=== PATIENT | male | born 1930 | race Caucasian/White ===

== ENCOUNTER 2016-10-29 15:55 | Emergency (ER) | payer MEDICARE, BC ==
--- NOTE | 2016-10-29 16:31 | EDM.PDOC ---
[id number] Complaint: MEDICAL VIA AMBULANCE Time Seen by Provider: 10/29/16 16:29 Source of Information: Reports: Patient, Family History Limitations: Reports: No Limitations - History of Present Illness INITIAL COMMENTS - FREE TEXT/NARRATIVE: [place]. He is now complaing of pain the rt hip area. 1 week ago he had a femerol stent placed. Onset: Today Duration: Hour(s): Location: Reports: Lower Extremity, Right Quality: Reports: Sharp Severity: Moderate Associated Symptoms: Reports: Other (pt has pain in the rt hip area. ) Right Hip Pain Score (Numeric/FACES): 5 - Related Data Allergies Allergy/AdvReac Type Severity Reaction Status Date / Time No Known Allergies Allergy Verified 05/20/13 13:06 Home Meds: Home Meds Atenolol 25 mg PO BEDTIME 05/20/13 [History] Prazosin [Minpress] 10 mg PO BEDTIME 05/20/13 [History] Ranitidine [Zantac] 150 mg PO BID 05/20/13 [History] Simvastatin [Zocor] 20 mg PO BEDTIME 05/20/13 [History] Valsartan [Diovan] 320 mg PO DAILY 05/20/13 [History] Aspirin 650 mg PO DAILY 08/14/14 [History] Past Medical History Cardiovascular History: Reports: Hypertension - Infectious Disease History Infectious Disease History: Reports: Chicken Pox, Measles, Mumps - Past Surgical History Cardiovascular Surgical History: Reports: Other (See Below) Other Cardiovascular Surgeries/Procedures: 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 , has a stent in right hip area Male Surgical History: Reports: Nephrectomy Musculoskeletal Surgical History: Reports: Shoulder Replacement Social & Family History - Tobacco Use Smoking Status *Q: Never Smoker Years of Tobacco use: 65 Packs/Tins Daily: 0.5 Used Tobacco, but Quit: No Month Tobacco Last Used: july Second Hand Smoke Exposure: Yes - Caffeine Use Caffeine Use: Reports: None - Alcohol Use Days Per Week of Alcohol Use: 7 Number of Drinks Per Day: 2 Total Drinks Per Week: 14 - Recreational Drug Use Recreational Drug Use: No Review of Systems - Review of Systems Review Of Systems: See Below Constitutional: Reports: No Symptoms Eyes: Reports: No Symptoms Ears: Reports: No Symptoms Nose: Reports: No Symptoms Mouth/Throat: Reports: No Symptoms Respiratory: Reports: No Symptoms Cardiovascular: Reports: No Symptoms GI/Abdominal: Reports: No Symptoms Genitourinary: Reports: No Symptoms Musculoskeletal: Reports: Other (pain in the rt hip area. ) ED EXAM, GENERAL - Physical Exam Exam: See Below Free Text/Narrative:: pt arrived with pain in the rt hip. [place] . He was not knoocked out. On arrival he had o2 sats in the low 80s. He was feeling sob. He was at [facility] 1 week ago. and had stents placed in his rt femoral artery. Exam Limited By: No Limitations General Appearance: Alert, Moderate Distress Ears: Normal TMs Nose: Normal Inspection Throat/Mouth: Normal Inspection Head: Atraumatic Neck: Normal Inspection Respiratory/Chest: Other ( o2 sats were low. He hd poor air exchange at the rt lung base. ) Cardiovascular: Regular Rate, Rhythm GI/Abdominal: Soft, Non-Tender (Male) Exam: Other ( huang cath was placed. ) Rectal (Males) Exam: Deferred Back Exam: Normal Inspection Extremities: Other (pt is having severe pain in the rt groin area. ) Neurological: Alert, Oriented, Normal Cognition Psychiatric: Anxious Course - Vital Signs Last Recorded V/S: Last Vital Signs Temp 36.9 C 10/29/16 16:06 Pulse 57 L 10/29/16 18:52 Resp 20 10/29/16 18:52 BP 137/75 10/29/16 18:52 Pulse Ox 91 L 10/29/16 18:52 - Orders/Labs/Meds Labs: Laboratory Tests 10/29/16 10/29/16 10/29/16 Range/Units 17:20 17:20 17:37 WBC 10.1 (4.5-11.0) K/uL RBC 5.30 (4.30-5.90) M/uL Hgb 17.0 H (12.0-15.0) g/dL Hct 50.6 (40.0-54.0) % MCV 96 (80-98) fL MCH 32 H (27-31) pg MCHC 34 (32-36) % Plt Count 92 L (150-400) K/uL Neut % (Auto) 83 H (36-66) % Lymph % (Auto) 10 L (24-44) % [place] % (Auto) 6 (2-6) % Eos % (Auto) 1 L (2-4) % Baso % (Auto) 1 (0-1) % Sodium 140 (140-148) mmol/L Potassium 4.5 (3.6-5.2) mmol/L Chloride 102 (100-108) mmol/L Carbon Dioxide 31 (21-32) mmol/L Anion Gap 6.6 (5.0-14.0) mmol/L BUN 32 H (7-18) mg/dL Creatinine 1.8 H (0.8-1.3) mg/dL Est Cr Clr Drug Dosing 26.72 mL/min Estimated GFR (MDRD) 36 L (>60) Glucose 94 (74-106) mg/dL Calcium 9.1 (8.5-10.1) mg/dL Total Bilirubin 0.9 (0.2-1.0) mg/dL AST 26 (15-37) U/L ALT 19 (12-78) U/L Alkaline Phosphatase 70 (46-116) U/L Total Protein 5.7 L (6.4-8.2) g/dL Albumin 3.1 L (3.4-5.0) g/dL Globulin 2.6 (2.3-3.5) g/dL Albumin/Globulin Ratio 1.2 (1.2-2.2) Urine Color [place] Urine Appearance Cloudy Urine pH 5.0 (4.5-8.0) Ur Specific [place] 1.020 (1.008-1.030) Urine Protein 500 H (NEGATIVE) mg/dL Urine Glucose (UA) Normal (NEGATIVE) mg/dL Urine Ketones Negative (NEGATIVE) mg/dL Urine Occult Blood Negative (NEGATIVE) Urine Nitrite Negative (NEGAITVE) Urine Bilirubin Negative (NEGATIVE) Urine Urobilinogen Normal (NORMAL) mg/dL Ur Leukocyte Esterase Negative (NEGATIVE) Urine RBC 0-5 (0-5) Urine WBC 0-5 (0-5) Ur Epithelial Cells Few Amorphous Sediment Numerous Urine Bacteria Rare Urine Mucus Few Meds: Medications Discontinued Medications Generic Name Dose Route Start Last Admin Trade Name Freq PRN Reason Stop Dose Admin Hydromorphone HCl 0.5 mg 10/29/16 17:19 10/29/16 17:28 Dilaudid IVPUSH 10/29/16 17:20 0.5 mg ONETIME ONE Administration Hydromorphone HCl 0.5 mg 10/29/16 18:35 10/29/16 18:47 Dilaudid IVPUSH 10/29/16 18:36 0.5 mg ONETIME ONE Administration Sodium Chloride 1,000 mls @ 100 mls/hr 10/29/16 18:45 10/29/16 18:48 Normal Saline IV 100 mls/hr ASDIRECTED CELIO Administration - Re-Assessments/Exams Free Text/Narrative Re-Assessment/Exam: 10/29/16 17:33 Pt had a fracture in the neck of the rt hip with displacement. 10/29/16 17:36 His chest xray has a density at the rt lung base. 10/29/16 18:15 pt arrived with low o2 sats and being sob. He was found to have a effusion in his rt lung. The xrays were sent to [place] and the orthopedist was not comfortable replacing his rt hip in the lite of the recent femoral stent placement. He felt he should be at the [facility] or [facility]. 10/29/16 18:34 pt was accepted to [facility]. His transport to [place] should be covered. Ortho in [place] was consulted a--Dr Riojas. He felt because of the recent stents that he should be at a larger facility. Departure - Departure Time of Disposition: 19:05 Disposition: DC/Tfer to Acute Hospital 02 Condition: fair Clinical Impression: Fracture of hip, right, closed, Peripheral angiopathy, Pleural effusion - Discharge Information Referrals: Moo Jackson MD [Primary Care Provider] - Forms: ED Department Discharge Care Plan Goals: transfer to [facility]
[2016-10-29] MEDS ORDERED: HYDROmorphone 0.5 MG/0.5 ML Syringe IVPUSH ONE ×2 (17:19→18:35)
[2016-10-29] MEDS ORDERED: Sodium Chloride 0.9% 1,000 ML IV SCH (18:45)
[2016-10-29 18:53] VITALS: BP 137/75
--- NOTE | 2016-10-30 09:18 | CR ---
Chest 1V Frontal HISTORY: Shortness of breath. COMPARISON: 08/14/2014. FINDINGS: Consolidative change the right lung base. Right-sided effusion. Increased interstitial johnathan nges in the perihilar regions could represent edema or inflammatory process. Impression: 1. Increased interstitial change in the perihilar regions either representing edema or inflammatory process. 2. Right lung base infiltrate and effusion. Recommend follow-up films to confirm improvement or reso lution.
--- NOTE | 2016-10-30 09:20 | CR ---
Hip Min 1V w Pelvis Rt HISTORY: Right hip pain. COMPARISON: None FINDINGS: Fracture of the very low neck of the right femur which may extend into the upper margin of the intertrochanteric region. Fracture is slightly rotated obscuring exact fracture site. Diffuse b one demineralization. Pubic rami appear intact.
== END 2016-10-29 19:10 ==
LOC: JP.ED 15:55
DX: S72.001A Fracture of unspecified part of neck of right femur, initial encounter for closed fracture (principal); I73.9 Peripheral vascular disease, unspecified; J90 Pleural effusion, not elsewhere classified; I10 Essential (primary) hypertension; Z79.899 Other long term (current) drug therapy; Z90.89 Acquired absence of other organs; Z96.619 Presence of unspecified artificial shoulder joint; W19.XXXA Unspecified fall, initial encounter
CPT/HCPCS: 36415; 51702; 71010; 73501; 80053; 81001; 85025; 96361; 96374; 96376; 99284; 99285; J1170; J7040